=== PATIENT | female | born 1980 | race Two or more races ===

== ENCOUNTER 2019-05-08 00:24 | Emergency (ER) | payer OTHER ==
[~2019-05-08] VITALS: Ht 154.9 cm; Wt 77.1 kg
[2019-05-08 04:43] VITALS: BP 123/89
[2019-05-08] MEDS ORDERED: KETOROLAC TROMETH 60MG/2ML VIAL IM ONE (05:05)
== END 2019-05-08 05:58 | disposition home or self-care (01) ==
LOC: ER 00:30
DX: S63.611A Unspecified sprain of left index finger, initial encounter (principal); X58.XXXA Exposure to other specified factors, initial encounter; Y93.89 Activity, other specified; Y92.89 Other specified places as the place of occurrence of the external cause; Y99.0 Civilian activity done for income or pay
CPT/HCPCS: 73130; 96372; 99283; J1885

== ENCOUNTER 2021-01-19 18:54 | Emergency (ER) | payer MEDICAID, OTHER ==
[~2021-01-19] VITALS: Ht 154.9 cm; Wt 77.1 kg
[2021-01-19 20:30] LABS: Basophils # (auto) 0 10 ^3/uL (0-0.2); Basophils % (auto) 0.3 % (0.0-2.0); Eosinophils # (auto) 0 10 ^3/uL (0-0.8); Eosinophils % (auto) 0.5 % (0.0-7.0); Hematocrit 44.4 % (36.0-46.0); Hemoglobin 15.2 g/dL (12.2-16.2); Lymphocytes # (auto) 1.3 10 ^3/uL (0.4-5.4); Lymphocytes % (auto) 12.6 % (10.0-50.0); Mean Corpuscular Hemoglobin 30.7 pg (28.0-32.0); Mean Corpuscular Hgb Conc. 34.2 g/dL (32.0-36.0); Mean Corpuscular Volume 89.8 fL (80.0-100.0); Monocytes # (auto) 0.5 10 ^3/uL (0-1.3); Monocytes % (auto) 5.2 % (0.0-12.0); Neutrophils # (auto) 8.1 10 ^3/uL (1.6-8.6); Neutrophils % (auto) 81.4 % (37.0-80.0); Nucleated Red Blood Cells % 0.3 %; Platelet Count (auto) 347 10^3/uL (140-450); Red Blood Cells 4.94 10^6/uL (4.0-5.20); Red Cell Distribution Width 13.4 % (11.8-14.3); White Blood Cell 9.9 10^3/uL (4.4-10.8)
[2021-01-19 20:45] LABS: Albumin 3.7 g/dL (3.4-5.0); BUN/Creatinine Ratio 14.3; Calcium 8.5 mg/dL (8.5-10.1); Potassium 3.5 mmol/L (3.5-5.1)
[2021-01-19 20:49] LABS: Bilirubin, Total 0.7 mg/dL (0.2-1.0); Total Protein 7.9 g/dL (6.4-8.2)
[2021-01-19 23:15] LABS: Urine Bacteria FEW /hpf (None Seen); Urine Blood TRACE /uL (Negative); Urine Mucus FEW (None Seen); Urine Specific Gravity 1.028 (1.001-1.035); Urine WBC 4 /hpf (0 - 5)
[2021-01-20] MEDS ORDERED: cefTRIAXone 1GM/50ML D5W 50 ML IV ONE
[2021-01-20] MEDS ORDERED: SODIUM CHLORIDE 0.9% 1,000 ML IV ONE (00:45)
[2021-01-20] MEDS ORDERED: ONDANSETRON HCL 4 MG/2 ML VIAL IV ONE (00:45)
[2021-01-20] MEDS ORDERED: MORPHINE SULF INJ 2 MG/ML SYRINGE 1ML IV ONE (00:45)
[2021-01-20 03:27] VITALS: BP 120/72
== END 2021-01-20 03:29 | disposition home or self-care (01) ==
LOC: ER 19:03
DX: A08.4 Viral intestinal infection, unspecified (principal); N30.00 Acute cystitis without hematuria
CPT/HCPCS: 36415; 74176; 80053; 81001; 84702; 85025; 96365; 96375; 99285; J0696; J2270; J2405; J7030

== ENCOUNTER 2022-08-17 17:53 | Emergency (ER) | payer MEDICAID ==
[~2022-08-17] VITALS: Ht 154.9 cm; Wt 70.7 kg
[2022-08-17 18:26] VITALS: BP 144/79
== END 2022-08-17 22:23 | disposition left against medical advice (07) ==
LOC: ER 17:53
DX: K08.89 Other specified disorders of teeth and supporting structures (principal); Z53.21 Procedure and treatment not carried out due to patient leaving prior to being seen by health care provider

== ENCOUNTER 2023-01-23 07:47 | Emergency (ER) | payer MEDICAID ==
[~2023-01-23] VITALS: Ht 154.9 cm; Wt 74.0 kg
[2023-01-23 08:08] VITALS: BP 168/94
[2023-01-23] MEDS ORDERED: CLIN300C8 PO (08:27)
[2023-01-23] MEDS ORDERED: HYDR-4902 PO (08:27)
== END 2023-01-23 08:37 | disposition home or self-care (01) ==
LOC: ER 07:47
DX: K04.7 Periapical abscess without sinus (principal)

== ENCOUNTER 2024-04-17 01:36 | Emergency (ER) | payer BC, MEDICAID ==
[~2024-04-17] VITALS: Ht 154.9 cm; Wt 72.7 kg
[~2024-04-17 01:36] MED LIST: CLIN1CAP70 PO; HYDR-4902 PO
[2024-04-17] MEDS: DexAMETHasone SOD PHOS 10MG/1ML VIAL INJ IM ONE (03:00)
[2024-04-17] MEDS ORDERED: PRED20TA2 PO (03:01)
[2024-04-17] MEDS ORDERED: CETITAB29 PO (03:01)
[2024-04-17] MEDS ORDERED: CLIN1CAP70 PO (03:01)
[2024-04-17] MEDS: CLINDAMYCIN 600MG IV 50 ML IV ONE (04:10)
[2024-04-17] MEDS: TETANUS-DIPTH-ACEL PERTUSSIS 0.5ML SYR Tdap IM ONE (04:16)
[2024-04-17] MEDS: DexAMETHasone SOD PHOS 10MG/1ML VIAL INJ IV ONE (04:29)
[2024-04-17] MEDS: cefTRIAXone 1GM/50ML D5W 50 ML IV ONE (05:25)
[2024-04-17 06:23] VITALS: BP 120/73; PULSE 78; RESP 18; TEMP 98.1; O2SAT 97
== END 2024-04-17 06:30 | disposition home or self-care (01) ==
LOC: ER 01:36
DX: S80.862A Insect bite (nonvenomous), left lower leg, initial encounter (principal); L03.116 Cellulitis of left lower limb; Z79.899 Other long term (current) drug therapy; Z79.52 Long term (current) use of systemic steroids; Z79.891 Long term (current) use of opiate analgesic; Z79.1 Long term (current) use of non-steroidal anti-inflammatories (NSAID); Z90.49 Acquired absence of other specified parts of digestive tract; Z98.890 Other specified postprocedural states; W57.XXXA Bitten or stung by nonvenomous insect and other nonvenomous arthropods, initial encounter; Y93.89 Activity, other specified; Y92.89 Other specified places as the place of occurrence of the external cause; Y99.8 Other external cause status
CPT/HCPCS: 90471; 90715; 96365; 96367; 96375; 99284; J0696; J1100; J3490; 96372

== ENCOUNTER 2024-07-10 18:08 | Emergency (ER) | payer BC, MEDICAID ==
[~2024-07-10 18:08] MED LIST changes: +CETITAB29 PO; +PRED20TA2 PO
[2024-07-10 18:38] VITALS: BP 122/82; PULSE 84; RESP 18; TEMP 98.6; O2SAT 98
[2024-07-10] MEDS ORDERED: DOXY100C4 PO (18:55)
[2024-07-10] MEDS ORDERED: METH4PAK PO (18:55)
[2024-07-10] MEDS: DexAMETHasone SOD PHOS 10MG/1ML VIAL INJ IM ONE (18:55)
[2024-07-10] MEDS: cefTRIAXone SOD 1,000 MG VL IM ONE (18:56)
== END 2024-07-10 19:11 | disposition home or self-care (01) ==
LOC: ER 18:08
DX: S50.861A Insect bite (nonvenomous) of right forearm, initial encounter (principal); B96.89 Other specified bacterial agents as the cause of diseases classified elsewhere; Z79.899 Other long term (current) drug therapy; Z90.49 Acquired absence of other specified parts of digestive tract; W57.XXXA Bitten or stung by nonvenomous insect and other nonvenomous arthropods, initial encounter; Y93.89 Activity, other specified; Y92.89 Other specified places as the place of occurrence of the external cause; Y99.8 Other external cause status
CPT/HCPCS: 96372; 99284; J0696; J1100